=== PATIENT | female | born 1990 | race Caucasian/White ===

== ENCOUNTER 2019-03-16 15:26 | Outpatient (CLI) | payer OTHER ==
[2019-03-16 16:33] LABS: ADD UMIC NO; UR ASCORBIC ACID NEGATIVE (NEGATIVE); UR BILIRUBIN (Dip) NEGATIVE (NEGATIVE); UR BLOOD (Dip) NEGATIVE (NEGATIVE); UR CLARITY SLIGHTLY CLOUDY (CLEAR); UR COLOR YELLOW (YELLOW); UR GLUCOSE (Dip) NEGATIVE (NEGATIVE); UR KETONES (Dip) NEGATIVE (NEGATIVE); UR LEUKOCYTE ESTERASE (Dip) NEGATIVE Leu/ul (NEGATIVE); UR MUCUS FEW /HPF (NONE SEEN); UR NITRITE (Dip) NEGATIVE (NEGATIVE); UR RBC 0 /HPF (0-5); UR SQUAMOUS EPITHELIAL CELL FEW /HPF (FEW); UR TOTAL PROTEIN (Dip) NEGATIVE (NEGATIVE); UR UROBILINOGEN (Dip) NEGATIVE (NEGATIVE); UR WBC 1 /HPF (0-5)
[2019-03-16] MEDS: TERBUTALINE 1 MG/ML INJ SC (16:57)
[2019-03-16] MEDS ORDERED: LACTATED RINGER'S 1,000 ML IV (17:30)
[2019-03-16] MEDS: LACTATED RINGER'S 1,000 ML IV (17:33)
== END 2019-03-16 18:42 | disposition home or self-care (01) ==
LOC: OBT 15:26 → L-D 15:27 → OBT 18:42
DX: O60.02 Preterm labor without delivery, second trimester (principal); Z3A.26 26 weeks gestation of pregnancy
CPT/HCPCS: 76817; 81001; 81003; 96360

== ENCOUNTER 2019-04-20 17:51 | Outpatient (CLI) | payer OTHER ==
[2019-04-20 19:05] LABS: ADD UMIC NO; UR ASCORBIC ACID NEGATIVE (NEGATIVE); UR BILIRUBIN (Dip) NEGATIVE (NEGATIVE); UR BLOOD (Dip) NEGATIVE (NEGATIVE); UR CLARITY CLEAR (CLEAR); UR COLOR YELLOW (YELLOW); UR GLUCOSE (Dip) NEGATIVE (NEGATIVE); UR KETONES (Dip) NEGATIVE (NEGATIVE); UR LEUKOCYTE ESTERASE (Dip) NEGATIVE Leu/ul (NEGATIVE); UR NITRITE (Dip) NEGATIVE (NEGATIVE); UR TOTAL PROTEIN (Dip) NEGATIVE (NEGATIVE); UR UROBILINOGEN (Dip) 1+ mg/dL (NEGATIVE)
[2019-04-20 19:17] LABS: RUPTURE FETAL MEMBRANES NEGATIVE (NEGATIVE)
== END 2019-04-20 22:00 | disposition home or self-care (01) ==
LOC: OBT 17:51 → L-D 17:52 → OBT 22:00
DX: O42.913 Preterm premature rupture of membranes, unspecified as to length of time between rupture and onset of labor, third trimester (principal); Z3A.31 31 weeks gestation of pregnancy
CPT/HCPCS: 76818; 81003; 84112; 87086

== ENCOUNTER 2019-05-16 11:04 | Inpatient (IN) | payer OTHER ==
[2019-05-16] MEDS: LACTATED RINGER'S 1,000 ML IV ×2 (12:24→14:17)
[2019-05-16] MEDS ORDERED: MISOPROSTOL 200 MCG TAB PR (12:30)
[2019-05-16] MEDS ORDERED: LIDOCAINE 1% (MPF) 30 ML INJ INJ (12:30)
[2019-05-16] MEDS ORDERED: CARBOPROST 250 MCG INJ IM (12:30)
[2019-05-16] MEDS ORDERED: morphine 4 MG/ML VIAL IV (12:30)
[2019-05-16] MEDS ORDERED: METHYLERGONOVINE 0.2 MG INJ IM (12:30)
[2019-05-16] MEDS ORDERED: OXYTOCIN 30 UNITS/LR 500 ML IV ×3 (12:30)
[2019-05-16 12:40] LABS: ADD MAN DIFF? NO
[2019-05-16 12:49] LABS: BASOPHILS % 0.4 % (0.0-2.0); EOSINOPHILS % 0.6 % (0.0-7.0); HEMATOCRIT 33.5 % (37.0-47.0); LYMPHOCYTES # 1.6 10^3/ul (0.8-2.9); LYMPHOCYTES % 22.4 % (15.0-51.0); MEAN CORPUSCULAR HEMOGLOBIN 28.8 pg (29.0-33.0); MEAN CORPUSCULAR HGB CONC 32.8 g/dl (32.0-37.0); MEAN CORPUSCULAR VOLUME 87.7 fl (82.0-101.0); MEAN PLATELET VOLUME 10.8 fl (7.4-10.4); MONOCYTE # 0.5 10^3/ul (0.3-0.9); MONOCYTES % 7.5 % (0.0-11.0); NEUTROPHIL # 4.8 10^3/ul (1.6-7.5); NEUTROPHILS % 68.8 % (39.0-77.0); PLATELET COUNT 230 10^3/UL (140-415); RED BLOOD COUNT 3.82 10^6/ul (4.20-5.40); RED CELL DISTRIBUTION WIDTH 12.7 % (11.5-14.5)
[2019-05-16 12:53] LABS: ADD UMIC YES; UR ASCORBIC ACID NEGATIVE (NEGATIVE); UR BILIRUBIN (Dip) NEGATIVE (NEGATIVE); UR BLOOD (Dip) 2+ mg/dL (NEGATIVE); UR CLARITY CLEAR (CLEAR); UR COLOR YELLOW (YELLOW); UR GLUCOSE (Dip) NEGATIVE (NEGATIVE); UR KETONES (Dip) NEGATIVE (NEGATIVE); UR LEUKOCYTE ESTERASE (Dip) NEGATIVE Leu/ul (NEGATIVE); UR MUCUS FEW /HPF (NONE SEEN); UR NITRITE (Dip) NEGATIVE (NEGATIVE); UR RBC 12 /HPF (0-5); UR SPECIFIC GRAVITY (Dip) 1.017 (1.003-1.030); UR TOTAL PROTEIN (Dip) NEGATIVE (NEGATIVE); UR UROBILINOGEN (Dip) NEGATIVE (NEGATIVE); UR WBC 0 /HPF (0-5)
[2019-05-16 13:09] LABS: INR 0.89; PROTIME 12.1 Sec (11.9-14.9); PT RATIO 0.9
[2019-05-16 13:10] LABS: PARTIAL THROMBOPLASTIN TIME 25.2 Sec (23.0-35.0)
[2019-05-16] MEDS: BETAMET NA PHOS/AC(6 MG/ML) 2 ML INJ SYG IM (13:50)
[2019-05-16] MEDS: AMPICILLIN 2 GM/NS (PMX) 100 ML IV (14:16)
[2019-05-16 17:17] LABS: RAPID PLASMA REAGIN NONREACTIVE (NR)
[2019-05-16] MEDS: AMPICILLIN 1 GM/NS (PMX) 50 ML IV ×2 (17:56→22:20)
[2019-05-17] MEDS: AMPICILLIN 1 GM/NS (PMX) 50 ML IV ×3 (02:31→11:14)
[2019-05-17] MEDS: BETAMET NA PHOS/AC(6 MG/ML) 2 ML INJ SYG IM (13:32)
[2019-05-19] MEDS ORDERED: GLYCOPYRROLATE 0.4 MG INJ (15:55)
[2019-05-19] MEDS ORDERED: CEFAZOLIN 1 GM INJ (15:55)
[2019-05-19] MEDS ORDERED: ROCURONIUM 50 MG INJ (15:55)
[2019-05-19] MEDS ORDERED: PROPOFOL 20 ML (15:55)
[2019-05-19] MEDS ORDERED: NEOSTIGMINE 3 MG/3 ML SYRINGE (15:55)
[2019-05-19] MEDS ORDERED: DEXAMETHASONE 4 MG/ML 5 ML INJ (15:58)
[2019-05-19] MEDS ORDERED: MIDAZOLAM 1 MG/ML 2 ML INJ (15:58)
[2019-05-19] MEDS ORDERED: FENTAnyl 50 MCG/ML VIAL (15:58)
[2019-05-19] MEDS ORDERED: ONDANSETRON 4 MG INJ (15:58)
== END 2019-05-17 14:30 | disposition home or self-care (01) | DRG 833 ==
LOC: OBT 11:04 → L-D 11:05 → OBT 11:50 → L-D 11:50
DX: O47.03 False labor before 37 completed weeks of gestation, third trimester (principal); Z3A.35 35 weeks gestation of pregnancy
CPT/HCPCS: 76815; 81001; 85025; 85610; 85730; 86592; 86850; 86900; 86901; 87081; 87086

== ENCOUNTER 2019-05-30 01:59 | Inpatient (IN) | payer OTHER ==
[2019-05-30] MEDS ORDERED: CARBOPROST 250 MCG INJ IM ×2 (02:30→20:30)
[2019-05-30] MEDS ORDERED: OXYTOCIN 30 UNITS/LR 500 ML IV ×3 (02:30→20:30)
[2019-05-30] MEDS ORDERED: FENTAnyl 50 MCG/ML VIAL IV (02:30)
[2019-05-30] MEDS ORDERED: METHYLERGONOVINE 0.2 MG INJ IM (02:30)
[2019-05-30] MEDS ORDERED: IBUPROFEN 600 MG TAB PO (02:30)
[2019-05-30] MEDS ORDERED: MISOPROSTOL 200 MCG TAB PR ×2 (02:30→20:30)
[2019-05-30] MEDS ORDERED: LIDOCAINE 1% (MPF) 30 ML INJ INJ (02:30)
[2019-05-30] MEDS ORDERED: BUTORPHANOL 2 MG INJ IV (02:30)
[2019-05-30 02:54] LABS: ADD MAN DIFF? NO
[2019-05-30 02:56] LABS: BASOPHILS % 0.3 % (0.0-2.0); EOSINOPHILS # 0.1 10^3/ul (0.0-0.5); EOSINOPHILS % 0.9 % (0.0-7.0); HEMATOCRIT 37.2 % (37.0-47.0); HEMOGLOBIN 12.3 g/dl (12.0-16.0); LYMPHOCYTES # 2.3 10^3/ul (0.8-2.9); LYMPHOCYTES % 25.7 % (15.0-51.0); MEAN CORPUSCULAR HGB CONC 33.1 g/dl (32.0-37.0); MEAN CORPUSCULAR VOLUME 87.7 fl (82.0-101.0); MONOCYTE # 0.7 10^3/ul (0.3-0.9); MONOCYTES % 8.3 % (0.0-11.0); NEUTROPHIL # 5.7 10^3/ul (1.6-7.5); NEUTROPHILS % 64.3 % (39.0-77.0); PLATELET COUNT 265 10^3/UL (140-415); RED BLOOD COUNT 4.24 10^6/ul (4.20-5.40)
[2019-05-30 02:56] LABS: WHITE BLOOD COUNT 8.8 10^3/ul (4.8-10.8)
[2019-05-30 03:18] LABS: INR 0.91; PARTIAL THROMBOPLASTIN TIME 25.2 Sec (23.0-35.0); PROTIME 12.4 Sec (11.9-14.9)
[2019-05-30] MEDS ORDERED: DIPHENHYDRAMINE 50 MG INJ IV ×2 (03:30→20:30)
[2019-05-30] MEDS ORDERED: NALOXONE (0.4 MG/ML) INJ IV (03:30)
[2019-05-30] MEDS ORDERED: ONDANSETRON 4 MG INJ IV ×2 (03:30→20:30)
[2019-05-30 03:47] LABS: HEPATITIS B SURFACE ANTIGEN NEGATIVE (NEGATIVE)
[2019-05-30] MEDS: LACTATED RINGER'S 1,000 ML IV ×3 (03:55→18:22)
[2019-05-30] MEDS: AMPICILLIN 2 GM/NS (PMX) 100 ML IV (05:30)
[2019-05-30] MEDS: AMPICILLIN 1 GM/NS (PMX) 50 ML IV ×5 (09:10→22:30)
[2019-05-30] MEDS: OXYTOCIN 30 UNITS/LR 500 ML IV ×3 (09:10→20:58)
[2019-05-30] MEDS: FENTAnyl 2MCG/ML-ROPIV 0.2% 100 ML BAG EPI ×2 (10:09→18:08)
[2019-05-30 19:41] LABS: RAPID PLASMA REAGIN NONREACTIVE (NR)
[2019-05-30] MEDS: LACTATED RINGER'S 1,000 ML IV* (20:12)
[2019-05-30 20:26] LABS: CBV Base Excess -3.5 mmol/L; CBV COHb 0.9 %; CBV Oxygen Sat 49.7 mmHG; CBV Total Hemglobin 17.3 g/dl; Cord Blood Venous pO2 22.8 mmHG (15.0-45.0); Fraction OxyHgb Cord Venous 48.5 %; MODE ROOM AIR; MetHgb Cord Venous 1.5 %; Sample Type CBV; Site CORD
[2019-05-30 20:30] LABS: AADO2 Cord Arterial 64.3 mmHg; Arterial Cord Blood pCO2 55.2 mmHG (25-50); CBA Base Excess -7.6 mmol/L; CBA COHb 0.3 %; CBA Oxygen Sat 33.4 mmHG; CBA Total Hemglobin 17.8 g/dl; Cord Blood Arterial pO2 19.3 mmHG (15.0-45.0); Fraction OxyHgb Cord Arterial 32.7 %; MODE ROOM AIR; MetHgb Cord Arterial 1.9 %; Sample Type CBA; Site CORD
[2019-05-30] MEDS ORDERED: DIPHENHYDRAMINE 25 MG CAP PO (20:30)
[2019-05-30] MEDS ORDERED: BENZOCAINE 20% 56 ML SPRAY TOP (20:30)
[2019-05-30] MEDS ORDERED: HYDROCODONE/APAP (5/325) TAB PO (20:30)
[2019-05-30] MEDS ORDERED: DIBUCAINE 1% 30 GM OINT TOP (20:30)
[2019-05-30] MEDS ORDERED: SENNA/DOCUSATE NA (8.6MG/50MG) TAB PO (20:30)
[2019-05-30] MEDS ORDERED: NA PHOSPHATE/BIPHOS 133 ML ENEMA PR (20:30)
[2019-05-30] MEDS ORDERED: ONDANSETRON 4 MG TAB PO (20:30)
[2019-05-30] MEDS ORDERED: WITCH HAZEL/GLYCERIN PAD PR (20:30)
[2019-05-30] MEDS ORDERED: MAGNESIUM HYDROXIDE 30ML CUP PO (20:30)
[2019-05-30] MEDS: SENNA/DOCUSATE NA (8.6MG/50MG) TAB PO (21:00)
[2019-05-31] MEDS: IBUPROFEN 600 MG TAB PO ×4 (00:03→17:37)
[2019-05-31] MEDS: LANOLIN HPA 1 PKT TOP (00:03)
[2019-05-31 08:28] LABS: ADD MAN DIFF? NO
[2019-05-31 08:47] LABS: WHITE BLOOD COUNT 15.8 10^3/ul (4.8-10.8)
[2019-05-31 08:47] LABS: BASOPHIL # 0.1 10^3/ul (0.0-0.1); BASOPHILS % 0.3 % (0.0-2.0); EOSINOPHILS % 0.3 % (0.0-7.0); HEMATOCRIT 37.2 % (37.0-47.0); LYMPHOCYTES # 1.9 10^3/ul (0.8-2.9); LYMPHOCYTES % 12.1 % (15.0-51.0); MEAN CORPUSCULAR HEMOGLOBIN 28.9 pg (29.0-33.0); MEAN CORPUSCULAR HGB CONC 32.3 g/dl (32.0-37.0); MEAN CORPUSCULAR VOLUME 89.6 fl (82.0-101.0); MEAN PLATELET VOLUME 11.2 fl (7.4-10.4); MONOCYTE # 1.3 10^3/ul (0.3-0.9); MONOCYTES % 8.3 % (0.0-11.0); NEUTROPHIL # 12.4 10^3/ul (1.6-7.5); NEUTROPHILS % 78.4 % (39.0-77.0); PLATELET COUNT 234 10^3/UL (140-415); RED BLOOD COUNT 4.15 10^6/ul (4.20-5.40); RED CELL DISTRIBUTION WIDTH 13.1 % (11.5-14.5)
[2019-05-31] MEDS: SENNA/DOCUSATE NA (8.6MG/50MG) TAB PO ×2 (09:51→21:44)
[2019-05-31] MEDS: OXYCODONE/ASPIRIN (4.88/325) TAB PO (15:03)
[2019-06-01] MEDS: IBUPROFEN 600 MG TAB PO ×3 (00:04→12:00)
[2019-06-01] MEDS: MEASLES,MUMPS,RUBELLA VACCINE INJ SC* (09:00)
[2019-06-01] MEDS: VARICELLA VACCINE LIVE/PF 1,350 UNIT/0.5 ML ML SC* (09:00)
[2019-06-01] MEDS: SENNA/DOCUSATE NA (8.6MG/50MG) TAB PO (09:00)
[2019-06-01] MEDS: DIPHTH/TET/ACEL PERTUSS (ADULT) 0.5 ML VIAL IM* (09:00)
[2019-06-01] MEDS: HYDROCODONE/APAP (5/325) TAB PO (12:28)
== END 2019-06-01 12:45 | disposition home or self-care (01) | DRG 807 ==
LOC: OBT 01:59 → L-D 01:59 → OBT 02:22 → L-D 02:22 → PP1 22:18
PROVIDERS: Specialist
PROC: 10E0XZZ Delivery of Products of Conception, External Approach (ICD-10-PCS; principal; 2019-05-30)
PROC: 4A1HXCZ Monitoring of Products of Conception, Cardiac Rate, External Approach (ICD-10-PCS; 2019-05-30)
PROC: 4A033R1 Measurement of Arterial Saturation, Peripheral, Percutaneous Approach (ICD-10-PCS; 2019-05-30)
DX: O80 Encounter for full-term uncomplicated delivery (principal); Z37.0 Single live birth; Z3A.37 37 weeks gestation of pregnancy
CPT/HCPCS: 36415; 36600; 62322; 82803; 85025; 85610; 85730; 86592; 86850; 86900; 86901; 87340; 90716; 99464